=== PATIENT | male | born 1985 | race Caucasian/White ===

== ENCOUNTER 2016-12-08 13:15 | Emergency (ER) | payer OTHER ==
[~2016-12-08] VITALS: Ht 167.6 cm; Wt 84.0 kg
[2016-12-08 13:17] VITALS: Ht 167.6 cm; Wt 84.0 kg
[2016-12-08] MEDS ORDERED: HYDROCODONE/APAP (5/325) TAB PO ONE (14:00)
[2016-12-08] MEDS ORDERED: morphine 10 MG INJ IM ONE (14:00)
[2016-12-08] MEDS ORDERED: IBUPROFEN 600 MG TAB PO ONE (14:00)
--- NOTE | 2016-12-08 14:20 | RADRPT ---
PROCEDURE: Right foot series. CLINICAL INDICATION: Right foot pain TECHNIQUE: Three views of the right foot are available for review. COMPARISON: None available FINDINGS: Multiple hammer toes are present. There is otherwise normal mineralization and alignment of the bon es of the right foot. Lisfranc's joint appears intact. No acute fracture or dislocation is seen. M ild to moderate diffuse soft tissue swelling is present. IMPRESSION: 1. No evidence of fracture or dislocation. 2. Mild to moderate diffuse soft tissue swelling. RPTAT: AA .Pierre Palafox MD, MD Date Time Electronically viewed and signed by .Pierre Palafox MD, MD on 12/08/2016 14:20 .B/
--- NOTE | 2016-12-08 14:20 | RADRPT ---
PROCEDURE: Right ankle series. CLINICAL INDICATION: Right ankle pain TECHNIQUE: Three views of the right ankle are available for review COMPARISON: None available FINDINGS: There is normal mineralization and alignment of the bones of the right ankle. No acute fracture or dislocation is seen. Joint spaces are well maintained. No osteophytes or erosions are identified. No joint effusion is identified. There is moderate diffuse soft tissue swelling. IMPRESSION: 1. Moderate soft tissue swelling without evidence of fracture or dislocation. RPTAT: AA .Pierre Palafox MD, MD Date Time Electronically viewed and signed by .Pierre Palafox MD, on 12/08/2016 14:19 .B/
[2016-12-08] MEDS ORDERED: IBUP-1542 PO (14:48)
[2016-12-08] MEDS ORDERED: HYDR-906 PO ×2 (14:48→17:18)
[2016-12-08] MEDS ORDERED: LORAZEPAM 0.5 MG TAB PO ONE (15:00)
[2016-12-08] MEDS ORDERED: SOD CHLORIDE 0.9% 1,000 ML IV ONE (15:30)
[2016-12-08 15:43] LABS: BASOPHILS % 0.2 % (0.0-2.0); EOSINOPHILS # 0.1 10^3/ul (0.0-0.5); EOSINOPHILS % 0.8 % (0.0-7.0); HEMATOCRIT 37.4 % (42.0-52.0); HEMOGLOBIN 13.5 g/dl (14.0-18.0); LYMPHOCYTES # 0.9 10^3/ul (0.8-2.9); LYMPHOCYTES % 9.5 % (15.0-51.0); MEAN CORPUSCULAR HEMOGLOBIN 30.6 pg (29.0-33.0); MEAN CORPUSCULAR HGB CONC 36.1 g/dl (32.0-37.0); MEAN CORPUSCULAR VOLUME 84.8 fl (82.0-101.0); MEAN PLATELET VOLUME 11.2 fl (7.4-10.4); MONOCYTES % 10.6 % (0.0-11.0); NEUTROPHIL # 7.5 10^3/ul (1.6-7.5); NEUTROPHILS % 78.4 % (39.0-77.0); PLATELET COUNT 182 10^3/UL (140-415); RED BLOOD COUNT 4.41 10^6/ul (4.70-6.10); RED CELL DISTRIBUTION WIDTH 12.1 % (11.5-14.5); WHITE BLOOD COUNT 9.5 10^3/ul (4.8-10.8)
[2016-12-08 16:04] LABS: ALBUMIN 4.1 g/dl (3.3-4.9); ALBUMIN/GLOBULIN RATIO 1.13; BILIRUBIN,INDIRECT 1.1 mg/dl (0-1.1); BILIRUBIN,TOTAL 1.1 mg/dl (0.2-1.3); CALCIUM 9.2 mg/dl (8.4-10.2); CREATININE 1.13 mg/dl (0.61-1.24); POTASSIUM 3.4 mmol/L (3.5-5.1); TOTAL PROTEIN 7.7 g/dl (6.1-8.1)
[2016-12-08 16:47] LABS: C-REACTIVE PROTEIN 43.2 mg/dl (0.0-0.9)
[2016-12-08] MEDS ORDERED: OLANZAPINE (ODT) 5 MG TAB ODT ONE (17:30)
[2016-12-08 17:32] LABS: CANNABINOIDS Positive (NEGATIVE)
[2016-12-08 17:39] LABS: BARBITURATES Negative (NEGATIVE); BENZODIAZEPINES Negative (NEGATIVE); COCAINE Negative (NEGATIVE); OPIATES Positive (NEGATIVE)
[2016-12-08] MEDS ORDERED: ARIP10TA13 PO (17:42)
[2016-12-08] MEDS ORDERED: CITA20TA6 PO (17:42)
[2016-12-08 17:48] VITALS: BP 128/81; PULSE 94; RESP 18; TEMP 98.9
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
== END 2016-12-08 17:57 | disposition home or self-care (01) ==
LOC: FTE 13:15 → E/R 17:57
DX: S99.911A Unspecified injury of right ankle, initial encounter (principal); Y08.89XA Assault by other specified means, initial encounter
CPT/HCPCS: 29515; 36415; 73610; 73630; 80053; 80307; 82550; 85025; 85651; 86140; 93005; 96360; 96372; J2270; J7030; Z7502; Z7610